=== PATIENT | male | born 1960 | race Caucasian/White ===

== ENCOUNTER 2017-04-06 05:51 | Day surgery (SDC) | payer BC ==
[~2017-04-06] VITALS: Ht 185.4 cm; Wt 98.2 kg
[2017-04-06] MEDS ORDERED: ATORVASTATIN PO (06:37)
[2017-04-06] MEDS ORDERED: ZOLP10TA PO (06:37)
[2017-04-06] MEDS ORDERED: ASPI-496 PO (06:37)
[2017-04-06] MEDS ORDERED: LACTATED RINGERS 1,000 ML IV SCH (06:37)
[2017-04-06 06:51] VITALS: BP 171/96
[2017-04-06] MEDS ORDERED: BACITRACIN OINT 500U/GM, 15 GM ONE (07:00)
[2017-04-06] MEDS ORDERED: EPINEPHRINE TOPICAL SOLN 1 MG/ML, 30ML ONE (07:00)
[2017-04-06] MEDS ORDERED: LIDOCAINE/PF 1%-EPI 1:200K, 30 ML ONE (07:00)
[2017-04-06] MEDS ORDERED: FLUORESCEIN OPHTHALMIC 1 MG STRIP ONE (07:00)
[2017-04-06] MEDS ORDERED: OXYMETAZOLINE NASAL SPRAY 0.05%, 15ML ONE (07:00)
[2017-04-06] MEDS ORDERED: FENTANYL PF 250 MCG/5ML ONE (07:15)
[2017-04-06] MEDS ORDERED: MIDAZOLAM 1 MG/ML, 2ML ONE (07:15)
[2017-04-06] MEDS ORDERED: HYDROmorphone 2 MG/ML, 1ML IV PRN (08:00)
[2017-04-06] MEDS ORDERED: ONDANSETRON 2MG/ML, 2ML IVPush PRN (08:00)
[2017-04-06] MEDS ORDERED: PROMETHAZINE 12.5 MG SUPP PR PRN (08:00)
[2017-04-06] MEDS ORDERED: LABETALOL 5MG/ML, 20ML IV PRN (08:00)
[2017-04-06] MEDS ORDERED: METOPROLOL 1 MG/ML, 5ML IV PRN (08:00)
[2017-04-06] MEDS ORDERED: EPHEDRINE 50 MG/ML, 1ML IVPush PRN (08:00)
[2017-04-06] MEDS ORDERED: MIDAZOLAM 1 MG/ML, 2ML IV PRN (08:00)
[2017-04-06] MEDS ORDERED: hydrALAzine 20 MG/ML, 1ML IV PRN (08:00)
[2017-04-06] MEDS ORDERED: HYDROcodone/APAP 7.5-325MG/15ML UDC PO PRN (08:00)
[2017-04-06] MEDS ORDERED: MEPERIDINE/PF 25MG/0.5ML IVPush PRN (08:00)
[2017-04-06] MEDS ORDERED: ALBUTEROL SULFATE 2.5 MG/3 ML NPPB PRN (08:00)
[2017-04-06] MEDS ORDERED: FENTANYL PF 100 MCG/2ML IV PRN (08:00)
[2017-04-06] MEDS ORDERED: OXYcodone 5 MG/5 ML ORAL.SOL UDC PO PRN (08:00)
[2017-04-06] MEDS ORDERED: ACETAMINOPHEN 325 MG TABLET PO PRN (08:00)
[2017-04-06] MEDS ORDERED: DIAZEPAM 5 MG/ML, 2ML IVPush PRN (08:00)
[2017-04-06] MEDS ORDERED: GLYCOPYRROLATE 0.2MG/1ML, 5ML ONE (08:33)
[2017-04-06] MEDS ORDERED: ROCURONIUM 10 MG/ML,10ML ONE (08:33)
[2017-04-06] MEDS ORDERED: ONDANSETRON 2MG/ML, 2ML ONE (08:33)
[2017-04-06] MEDS ORDERED: NEOSTIGMINE 1 MG/ML, 10ML ONE (08:33)
[2017-04-06] MEDS ORDERED: CEFAZOLIN 1,000 MG ONE (08:33)
[2017-04-06] MEDS ORDERED: SUCCINYLCHOLINE 20 MG/ML, 10ML ONE (08:33)
[2017-04-06] MEDS ORDERED: PROPOFOL 10 MG/ML, 20ML ONE (08:33)
[2017-04-06] MEDS ORDERED: DEXAMETHASONE 4 MG/ML, 1ML ONE (08:33)
[2017-04-06] MEDS ORDERED: HYDROmorphone 2 MG/ML, 1ML ONE (08:34)
[2017-04-06] MEDS ORDERED: LABETALOL 5MG/ML, 20ML ONE ×2 (09:45)
[2017-04-06] MEDS ORDERED: HYDROcodone/APAP 7.5-325MG/15ML UDC ONE (10:13)
[2017-04-06] MEDS ORDERED: hydrALAzine 20 MG/ML, 1ML ONE (11:06)
== END 2017-04-06 12:55 ==
LOC: OUT 05:51
PROVIDERS: ATTEND Otolaryngology
DX: J32.2 Chronic ethmoidal sinusitis (principal); J33.9 Nasal polyp, unspecified
CPT/HCPCS: 30140; 31253; 31257; 31267; 61782; 87070; 87075; 87205; 88304; J0330; J0360; J0690; J1100; J1170; J2250; J2405; J2704; J2710; J3010; J3490; J7120; 88311